=== PATIENT | female | born 1965 | race Caucasian/White ===

== ENCOUNTER → 2016-05-22 | Outpatient (CLI) | payer SELFPAY ==
[2016-05-22 14:16] LABS: BASOPHILS # (AUTO) 0.04 10*3/UL; BASOPHILS % (AUTO) 0.5 % (0-1); EOSINOPHILS % (AUTO) 1.2 % (0-8); HEMATOCRIT 43.3 % (37.0-47.0); IMM GRAN % (AUTO) 0.5 % (0-5); IMM GRAN# (AUTO) 0.04 10*3/UL; LYMPHOCYTES # (AUTO) 1.71 10*3/uL; LYMPHOCYTES % (AUTO) 19.9 % (10-50); MEAN CORPUSCULAR HEMOGLOBIN 31.5 PG (27-31); MEAN CORPUSCULAR HGB CONC 34.6 g/dL (33-37); MEAN PLATELET VOLUME 10.3 FL (7.4-12.2); MONOCYTES # (AUTO) 0.76 10*3/UL (0.3-0.8); MONOCYTES % (AUTO) 8.8 % (5-15); NEUTROPHILS # (AUTO) 5.96 10*3/UL; NEUTROPHILS % (AUTO) 69.1 % (50-80); RDW COEFFICIENT OF VARIATION 13.1 % (11.5-14.5); RED BLOOD COUNT 4.76 10^6/uL (4.20-5.40); WHITE BLOOD COUNT 8.61 10^3/uL (4.8-10.8)
[2016-05-22 14:21] LABS: PLATELET MORPHOLOGY COMMENT NORMAL MORPHOLOGY (NORM)
[2016-05-22 14:25] LABS: AMYLASE 123 U/L (30-110); ASPARTATE AMINO TRANSFERASE 16 IU/L (8-39); BILIRUBIN,TOTAL 1.1 mg/dL (0.3-1.2); BLOOD UREA NITROGEN 15 mg/dL (7-22); BUN/CREATININE RATIO 21.42 (6-20); CALCIUM 9.4 mg/dL (8.7-10.7); CHLORIDE 99 meq/L (98-112); CREATININE 0.7 mg/dL (0.50-1.20); EST GLOMERULAR FILTRATION > 60 (>60 ml/min/1.73m(2)); GLUCOSE 102 mg/dL (78-110); POTASSIUM 3.9 meq/L (3.8-5.2); SODIUM 136 meq/L (135-145); TOTAL PROTEIN 6.8 g/dL (6.1-8.0)
== END ==
LOC: MOB LAB 13:51
PROVIDERS: ATTEND Physician Assistant Medical
DX: R11.2 Nausea with vomiting, unspecified (principal); R19.7 Diarrhea, unspecified
CPT/HCPCS: 36415; 80053; 82150; 83690; 84443; 85025

== ENCOUNTER → 2016-05-25 | Outpatient (CLI) | payer BC ==
[2016-05-25 10:02] LABS: URINE SPECIFIC GRAVITY - MAN 1.014
--- NOTE | 2016-05-25 11:30 | DI ---
CT ABDOMEN W/CONTRAST,05/25/2016 9:38 AM: Clinical History: Elevated amylase. Previous Exam: None at this facility. Findings: Multiple helically acquired CT images are obtained through the abdomen following the intravenous admi nistration of Isovue 300 (95 cc). The liver, spleen, adrenals and pancreas are unremarkable. Visualized portions of the appendix are no rmal. There is no free air nor free fluid. The lung bases are clear. Skeletal structures are unremarkable. The gallbladder is normal. There is no peripancreatic fat stranding. Impression: 1. No CT evidence of pancreatitis.
== END ==
LOC: CT 09:32
PROVIDERS: ATTEND Physician Assistant Medical
DX: R74.8 Abnormal levels of other serum enzymes (principal); R11.0 Nausea
CPT/HCPCS: 74160; 84703

== ENCOUNTER → 2016-06-05 | Outpatient (CLI) | payer BC ==
--- NOTE | 2016-06-05 11:53 | DI ---
GALLBLADDER AND LIVER ULTRASOUND, 06/05/2016 9:46 AM: Clinical History: Nausea and vomiting. Previous Exam: None at this facility. Technique: Scans are performed through the right upper quadrant in multiple projections. The patient was rolled vigorously from side to side, and the gallbladder was balloted with the probe to facilitat e visualization of small potential gallstones. The gallbladder is well distended and has a normal wall thickness. There are no gallstones. The commo n hepatic duct measures 2 mm. The pancreas is visualized from the head to the body and is normal. The visualized portions of the liver, right kidney, and IVC are normal. The aorta is normal. Readin. Normal gallbladder ultrasound. 2. The liver, right kidney, pancreas, IVC, and aorta are normal.
== END ==
LOC: US 09:39
PROVIDERS: ATTEND Surgery
DX: R11.2 Nausea with vomiting, unspecified (principal); F17.210 Nicotine dependence, cigarettes, uncomplicated
CPT/HCPCS: 76705

== ENCOUNTER → 2016-06-07 | Day surgery (SDC) | payer BC ==
[~2016-06-07] MED LIST: LIDOCAINE W/ SODIUM BICARB 0.5 ML SYR ONE; Lactated Ringers 1,000 ML PRIMARY IV ONE
--- NOTE | 2016-06-07 10:50 | GEN.OPNOTE ---
EGD Operative Note Surgery Date: 06/07/16 Preoperative Diagnosis: Nausea vomiting Postoperative Diagnosis: Duodenitis Procedure: Esophagogastroduodenoscopy with biopsy Surgeon: Brett Rodriguez MD Anesthesia Provider: Renetta Brand CRNA Anesthesia Type: MAC Indications: Persistent nausea vomiting Findings: Esophagus: Olympus video EGD scope inserted in the posterior pharynx. Guided under direct visualization into the esophagus. Patient had normal-appearing esophagus. While withdrawing the scope we did do biopsies of the distal GE junction GE Junction : GE junction proximal be 38 cm from incisors Fundus : Scope retroflexed on itself revealing a normal fundus Body : Body in the stomach appeared to be normal no masses tumors are ulcerations Prepyloric : Prepyloric area appeared to be normal Small Intestine : First portion of the duodenum had what appeared be acute inflammatory changes but no ulcerations. Biopsies taken. Second third portion of the duodenum appeared to be normal A lubricated flexible upper endoscope was inserted and passed through the esophagus and stomach into the duodenum.
[2016-06-07 12:11] VITALS: TEMP 99.2
[2016-06-07 12:14] VITALS: RESP 14
== END ==
LOC: SDSC 09:18
PROVIDERS: ATTEND Surgery
DX: K29.80 Duodenitis without bleeding (principal); R11.2 Nausea with vomiting, unspecified
CPT/HCPCS: 36415; 43239; 84703; J2704; J7120